=== PATIENT | female | born 1985 | race Caucasian/White ===

== ENCOUNTER 2017-08-11 14:40 | Inpatient (IN) | payer BC ==
[2017-08-11] MEDS: IV NORMAL SALINE 1000ML BAG 1,000 ML IV (15:00)
[2017-08-11] MEDS: IOHEXOL 300 MG/ML 100ML VIAL. IV (15:15)
[2017-08-11 15:29] LABS: ADD MAN DIFF? NO
[2017-08-11] MEDS ORDERED: CONTRAST GIVEN MC (15:30)
[2017-08-11 15:33] LABS: AGAP ISTAT 17 mmol/L (6-14); BASO % 0 % (0-3); BUN ISTAT 20 mg/dL (8-26); CHLORIDE ISTAT 103 mmol/L (98-110); CREATININE ISTAT 0.8 mg/dL (0.5-1.4); EOS % 0 % (0-3); GLUCOSE ISTAT 227 mg/dL (70-99); HEMATOCRIT ISTAT 16 % (36-40); HEMOGLOBIN ISTAT 5.4 g/dL (12-15); ION CA ISTAT 1.05 mmol/L (1.13-1.32); LYMPH # 1.5 x10^3/uL (1.0-4.8); LYMPH % 6 % (24-48); MEAN CORPUSCULAR HEMOGLOBIN 33 pg (25-35); MEAN CORPUSCULAR HGB CONC 33 g/dL (31-37); MEAN CORPUSCULAR VOLUME 100 fL (79-100); MONO # 1.2 x10^3/uL (0.0-1.1); MONO % 5 % (0-9); NEUT # 22.5 x10^3uL (1.8-7.7); NEUT % 89 % (31-73); PLATELET COUNT 358 x10^3/uL (140-400); POTASSIUM ISTAT 4.2 mmol/L (3.5-5.0); RED BLOOD COUNT 1.82 x10^6/uL (3.50-5.40); RED CELL DISTRIBUTION WIDTH 15.8 % (11.5-14.5); SODIUM ISTAT 138 mmol/L (135-145); TOT CO2 ISTAT 22 mmol/L (23-32); WHITE BLOOD COUNT 25.3 x10^3/uL (4.0-11.0)
[2017-08-11 15:35] LABS: HEMATOCRIT 18.1 % (36.0-47.0); HEMOGLOBIN 5.9 g/dL (12.0-15.5)
[2017-08-11] MEDS: IV RINGERS,LACTATED 1000ML 1,000 ML IV (15:41)
[2017-08-11 15:43] LABS: ANION GAP 10 (6-14); BLOOD UREA NITROGEN 18 mg/dL (7-20); CALCIUM 7.5 mg/dL (8.5-10.1); CARBON DIOXIDE 24 mmol/L (21-32); CHLORIDE 106 mmol/L (98-107); CREATININE 0.7 mg/dL (0.6-1.0); GFR 98.3; GLUCOSE 238 mg/dL (70-99); POTASSIUM 4.2 mmol/L (3.5-5.1); SODIUM 140 mmol/L (136-145)
[2017-08-11 15:44] LABS: INR 1.2 (0.8-1.1); PARTIAL THROMBOPLASTIN TIME 24 SEC (24-38); PROTHROMBIN TIME PATIENT 14.7 SEC (11.7-14.0)
[2017-08-11] MEDS ORDERED: ONDANSETRON PF 4 MG/2 ML VIAL. IV ×3 (15:45→18:00)
[2017-08-11] MEDS ORDERED: LIDOCAINE 1% PF 2 ML VIAL. ID (15:45)
[2017-08-11] MEDS ORDERED: fentaNYL PF VIAL 100 MCG/2 ML VIAL IV ×3 (15:45→17:30)
[2017-08-11] MEDS ORDERED: MORPHINE SULFATE 2 MG/ML DISP.SYRIN. IV (15:45)
[2017-08-11] MEDS ORDERED: HYDROmorphone 2 MG/ML VIAL IV ×2 (15:45→17:30)
[2017-08-11 15:49] LABS: ALBUMIN 2.5 g/dL (3.4-5.0); ALK PHOS 49 U/L (46-116); ALT (SGPT) 20 U/L (14-59); AST (SGOT) 23 U/L (15-37); DIRECT BILIRUBIN 0.1 mg/dL (0.0-0.2); TOTAL BILIRUBIN 0.7 mg/dL (0.2-1.0)
[2017-08-11 15:50] LABS: IMMEDIATE SPIN CROSSMATCH 1
[2017-08-11] MEDS ORDERED: ROCURONIUM 100 MG/10 ML VIAL. (16:03)
[2017-08-11] MEDS ORDERED: PROPOFOL 20 ML IV (16:03)
[2017-08-11] MEDS ORDERED: fentaNYL PF VIAL 100 MCG/2 ML VIAL (16:03)
[2017-08-11] MEDS ORDERED: LIDOCAINE 1% PF 5 ML VIAL. (16:03)
[2017-08-11] MEDS ORDERED: SUCCINYLCHOLINE 200 MG/10 ML VIAL. (16:07)
[2017-08-11] MEDS ORDERED: PHENYLEPHRINE in 0.9% NACL PF 1 MG/10 ML SYRINGE. IV (16:43)
[2017-08-11] MEDS ORDERED: DESFLURANE 61 TO 120 MINUTES IH (16:46)
[2017-08-11] MEDS ORDERED: DEXAMETHASONE SOD PHOS 20 MG/5 ML VIAL. (16:46)
[2017-08-11] MEDS ORDERED: ALBUMIN HUMAN 5% 500 ML IV (17:01)
[2017-08-11] MEDS ORDERED: ONDANSETRON PF 4 MG/2 ML VIAL. (17:06)
[2017-08-11 17:15] LABS: % BANDS 28 % (0-9); % METAS 1 % (0-0); % MONOS 4 % (0-10); % SEGS 67 % (35-66)
[2017-08-11 17:16] LABS: ANISOCYTOSIS SLIGHT; PLT ESTIMATE ADEQUATE (ADEQUATE); POLYCHROMASIA PRESENT
[2017-08-11] MEDS ORDERED: GLYCOPYRROLATE 1 MG/5 ML VIAL. (17:21)
[2017-08-11] MEDS ORDERED: NEOSTIGMINE 10 MG/10 ML VIAL. (17:21)
[2017-08-11] MEDS ORDERED: IPRATRPIUM/ALBUTEROL 0.5/2.5MG 3 ML NEBU. NEB (17:30)
[2017-08-11] MEDS ORDERED: NALOXONE 0.4 MG/ML VIAL. IV (17:30)
[2017-08-11] MEDS ORDERED: diphenhydrAMINE 50 MG/ML VIAL IV (17:30)
[2017-08-11] MEDS: SURGICEL HEMOSTAT 4X8 EACH. (17:30)
[2017-08-11] MEDS ORDERED: MIDAZOLAM HCL/PF 2 MG/2 ML VIAL. IV (17:30)
[2017-08-11] MEDS ORDERED: PROCHLORPERAZINE 10 MG/2 ML VIAL. IV (17:30)
[2017-08-11] MEDS ORDERED: LABETALOL 20 MG/4 ML DISP.SYRIN. IV (17:30)
[2017-08-11] MEDS ORDERED: hydrALAZINE 20 MG/ML VIAL. IVP (17:30)
[2017-08-11] MEDS ORDERED: BENZOCAINE/MENTHOL LOZENGE. PO (18:00)
[2017-08-11] MEDS ORDERED: 0.9 % SODIUM CHLORIDE 10 ML DISP.SYRIN. IV (18:00)
[2017-08-11] MEDS ORDERED: PHENOL ORAL SPRAY 177ML BOTTLE. PO (18:00)
[2017-08-11] MEDS: PROCHLORPERAZINE 10 MG/2 ML VIAL. IV ×2 (18:09→18:20)
[2017-08-11] MEDS: fentaNYL PF VIAL 100 MCG/2 ML VIAL IV ×4 (18:12→19:20)
[2017-08-11] MEDS: MORPHINE SULFATE 4 MG/ML DISP.SYRIN. IV ×2 (18:34→18:47)
[2017-08-11 19:23] LABS: HEMOGLOBIN 8.1 g/dL (12.0-15.5); MEAN CORPUSCULAR HEMOGLOBIN 31 pg (25-35); MEAN CORPUSCULAR HGB CONC 34 g/dL (31-37); MEAN CORPUSCULAR VOLUME 93 fL (79-100); PLATELET COUNT 352 x10^3/uL (140-400); RED BLOOD COUNT 2.58 x10^6/uL (3.50-5.40); RED CELL DISTRIBUTION WIDTH 16.4 % (11.5-14.5); WHITE BLOOD COUNT 21.8 x10^3/uL (4.0-11.0)
[2017-08-11] MEDS: MORPHINE SULFATE 2 MG/ML DISP.SYRIN. IV (19:23)
[2017-08-11] MEDS: POTASSIUM CL 20MEQ-0.45% NACL 1,000 ML IV (22:34)
[2017-08-11 22:55] LABS: LACTIC ACID 1.6 mmol/L (0.4-2.0)
[2017-08-12] MEDS: POTASSIUM CL 20MEQ-0.45% NACL 1,000 ML IV ×3 (03:21→22:05)
[2017-08-12 06:23] LABS: ALBUMIN 3.2 g/dL (3.4-5.0); ALBUMIN/GLOBULIN RATIO 1.3 (1.0-1.7); ALK PHOS 46 U/L (46-116); ALT (SGPT) 48 U/L (14-59); AST (SGOT) 39 U/L (15-37); BASO % 0 % (0-3); BLOOD UREA NITROGEN 15 mg/dL (7-20); BUN/CREATININE RATIO 30 (6-20); CALCIUM 7.9 mg/dL (8.5-10.1); CARBON DIOXIDE 27 mmol/L (21-32); CHLORIDE 103 mmol/L (98-107); CREATININE 0.5 mg/dL (0.6-1.0); EOS % 0 % (0-3); GFR 144.9; GLUCOSE 122 mg/dL (70-99); HEMATOCRIT 23.3 % (36.0-47.0); HEMOGLOBIN 8.1 g/dL (12.0-15.5); LYMPH % 6 % (24-48); MEAN CORPUSCULAR HEMOGLOBIN 32 pg (25-35); MEAN CORPUSCULAR HGB CONC 35 g/dL (31-37); MEAN CORPUSCULAR VOLUME 92 fL (79-100); MONO # 1.4 x10^3/uL (0.0-1.1); MONO % 9 % (0-9); NEUT # 14.3 x10^3uL (1.8-7.7); NEUT % 85 % (31-73); PLATELET COUNT 400 x10^3/uL (140-400); POTASSIUM 4.7 mmol/L (3.5-5.1); RED BLOOD COUNT 2.53 x10^6/uL (3.50-5.40); RED CELL DISTRIBUTION WIDTH 16.5 % (11.5-14.5); TOTAL PROTEIN 5.7 g/dL (6.4-8.2); WHITE BLOOD COUNT 16.8 x10^3/uL (4.0-11.0)
[2017-08-12 06:36] LABS: ANION GAP 6 (6-14); SODIUM 136 mmol/L (136-145)
[2017-08-12 06:53] LABS: ADD MAN DIFF? YES
[2017-08-12 08:23] LABS: LACTIC ACID 4.3 mmol/L (0.4-2.0)
[2017-08-12] MEDS: CALCIUM CHLORIDE IV (09:46)
[2017-08-12] MEDS: DEXTROSE 5% IV (09:46)
[2017-08-12 09:47] LABS: % BANDS 7 % (0-9); % LYMPHS 5 % (24-48); % MONOS 5 % (0-10); % SEGS 83 % (35-66); PLT ESTIMATE ADEQUATE (ADEQUATE)
[2017-08-12 09:48] LABS: ANISOCYTOSIS PRESENT
[2017-08-12 16:17] LABS: MRSA BY PCR Negative (Negative)
[2017-08-12] MEDS: VANCOMYCIN 1.5 GM in IV DEXTROSE 5 %-0.2 % NACL 500 ML IV (17:28)
[2017-08-12] MEDS: diphenhydrAMINE 50 MG/ML VIAL IV (19:25)
[2017-08-12] MEDS: VANCOMYCIN PER PHARMACY MC (19:39)
[2017-08-12 21:10] LABS: HEMOGLOBIN A1C 4.7 % (4.8-5.6)
[2017-08-13] MEDS: KETOROLAC 30 MG/ML INJ. IV (00:49)
[2017-08-13] MEDS: VANCOMYCIN 1 GM in IV DEXTROSE 5% 250 ML IV ×3 (01:00→17:05)
[2017-08-13] MEDS: KETOROLAC 15 MG/ML VIAL. IV ×4 (05:47→23:58)
[2017-08-13] MEDS ORDERED: AMPICILLIN/SULBACTAM 3 GM in IV NORMAL SALINE 100ML 100 ML IV (07:30)
[2017-08-13] MEDS: VANCOMYCIN PER PHARMACY MC ×2 (08:33→17:11)
[2017-08-13 09:08] LABS: ADD MAN DIFF? NO
[2017-08-13 09:09] LABS: BASO # 0.1 x10^3/uL (0.0-0.2); BASO % 0 % (0-3); EOS % 0 % (0-3); HEMOGLOBIN 7.1 g/dL (12.0-15.5); LYMPH # 0.6 x10^3/uL (1.0-4.8); LYMPH % 4 % (24-48); MEAN CORPUSCULAR HEMOGLOBIN 32 pg (25-35); MEAN CORPUSCULAR HGB CONC 34 g/dL (31-37); MEAN CORPUSCULAR VOLUME 93 fL (79-100); MONO % 12 % (0-9); NEUT # 14.4 x10^3uL (1.8-7.7); NEUT % 84 % (31-73); PLATELET COUNT 494 x10^3/uL (140-400); RED BLOOD COUNT 2.25 x10^6/uL (3.50-5.40); RED CELL DISTRIBUTION WIDTH 16.9 % (11.5-14.5); WHITE BLOOD COUNT 17.1 x10^3/uL (4.0-11.0)
[2017-08-13 09:10] LABS: HEMATOCRIT 21.8 % (36.0-47.0)
[2017-08-13] MEDS: AMPICILLIN/SULBACTAM IV Push 3 GM VIAL. IVP ×4 (09:10→23:57)
[2017-08-13 09:37] LABS: ALBUMIN 2.7 g/dL (3.4-5.0); ALBUMIN/GLOBULIN RATIO 0.8 (1.0-1.7); ALK PHOS 51 U/L (46-116); ALT (SGPT) 32 U/L (14-59); ANION GAP 8 (6-14); AST (SGOT) 22 U/L (15-37); BLOOD UREA NITROGEN 10 mg/dL (7-20); BUN/CREATININE RATIO 20 (6-20); CALCIUM 8.1 mg/dL (8.5-10.1); CARBON DIOXIDE 29 mmol/L (21-32); CHLORIDE 103 mmol/L (98-107); CREATININE 0.5 mg/dL (0.6-1.0); GFR 144.9; GLUCOSE 99 mg/dL (70-99); POTASSIUM 3.6 mmol/L (3.5-5.1); SODIUM 140 mmol/L (136-145); TOTAL PROTEIN 6.1 g/dL (6.4-8.2)
[2017-08-13] MEDS: POTASSIUM CL 20MEQ-0.45% NACL 1,000 ML IV (10:08)
[2017-08-13 16:14] LABS: MEAN CORPUSCULAR HEMOGLOBIN 32 pg (25-35); MEAN CORPUSCULAR HGB CONC 33 g/dL (31-37); MEAN CORPUSCULAR VOLUME 95 fL (79-100); PLATELET COUNT 473 x10^3/uL (140-400); RED BLOOD COUNT 2.14 x10^6/uL (3.50-5.40); RED CELL DISTRIBUTION WIDTH 17.2 % (11.5-14.5); WHITE BLOOD COUNT 15.1 x10^3/uL (4.0-11.0)
[2017-08-13 16:18] LABS: HEMATOCRIT 20.4 % (36.0-47.0); HEMOGLOBIN 6.8 g/dL (12.0-15.5)
[2017-08-13 16:32] LABS: VANC TR 18.9 mcg/mL (10.0-20.0)
[2017-08-13] MEDS: AMINO AC 3%/ELECTROLYTE/GLYCER 1,000 ML IV (17:04)
[2017-08-13 20:00] LABS: IMMEDIATE SPIN CROSSMATCH 1 3
[2017-08-13] MEDS: FUROSEMIDE 20 MG/2 ML VIAL. IVP (23:09)
[2017-08-13] MEDS: ENOXAPARIN 30 MG/0.3 ML SYRINGE. SQ (23:10)
[2017-08-14 00:27] LABS: HEMATOCRIT 24.9 % (36.0-47.0); HEMOGLOBIN 8.4 g/dL (12.0-15.5); MEAN CORPUSCULAR HEMOGLOBIN 32 pg (25-35); MEAN CORPUSCULAR HGB CONC 34 g/dL (31-37); MEAN CORPUSCULAR VOLUME 94 fL (79-100); PLATELET COUNT 504 x10^3/uL (140-400); RED BLOOD COUNT 2.65 x10^6/uL (3.50-5.40); RED CELL DISTRIBUTION WIDTH 16.1 % (11.5-14.5); WHITE BLOOD COUNT 13.4 x10^3/uL (4.0-11.0)
[2017-08-14] MEDS: VANCOMYCIN 1 GM in IV DEXTROSE 5% 250 ML IV ×3 (01:14→17:30)
[2017-08-14] MEDS: AMINO AC 3%/ELECTROLYTE/GLYCER 1,000 ML IV ×2 (05:57→18:30)
[2017-08-14] MEDS: AMPICILLIN/SULBACTAM IV Push 3 GM VIAL. IVP ×4 (05:58→23:59)
[2017-08-14 06:00] LABS: ADD MAN DIFF? NO; BASO % 0 % (0-3); EOS # 0.1 x10^3/uL (0.0-0.7); EOS % 1 % (0-3); HEMATOCRIT 23.8 % (36.0-47.0); LYMPH # 1.5 x10^3/uL (1.0-4.8); LYMPH % 13 % (24-48); MEAN CORPUSCULAR HEMOGLOBIN 31 pg (25-35); MEAN CORPUSCULAR HGB CONC 33 g/dL (31-37); MEAN CORPUSCULAR VOLUME 93 fL (79-100); MONO # 1.5 x10^3/uL (0.0-1.1); MONO % 13 % (0-9); NEUT # 8.3 x10^3uL (1.8-7.7); NEUT % 73 % (31-73); PLATELET COUNT 490 x10^3/uL (140-400); RED BLOOD COUNT 2.55 x10^6/uL (3.50-5.40); RED CELL DISTRIBUTION WIDTH 15.9 % (11.5-14.5); WHITE BLOOD COUNT 11.5 x10^3/uL (4.0-11.0)
[2017-08-14 07:03] LABS: ANION GAP 10 (6-14); BLOOD UREA NITROGEN 11 mg/dL (7-20); CALCIUM 8.6 mg/dL (8.5-10.1); CARBON DIOXIDE 30 mmol/L (21-32); CHLORIDE 103 mmol/L (98-107); CREATININE 0.5 mg/dL (0.6-1.0); GFR 144.9; GLUCOSE 84 mg/dL (70-99); POTASSIUM 3.2 mmol/L (3.5-5.1); SODIUM 143 mmol/L (136-145)
[2017-08-14] MEDS ORDERED: ENOXAPARIN 30 MG/0.3 ML SYRINGE. SQ (09:00)
[2017-08-14] MEDS ORDERED: SIMETHICONE 80 MG TAB.CHEW PO ×2 (10:00→10:15)
[2017-08-14] MEDS: VANCOMYCIN PER PHARMACY MC (10:02)
[2017-08-14] MEDS: DOCUSATE SODIUM 100 MG CAPSULE. PO ×2 (10:45→21:11)
[2017-08-14] MEDS: POTASSIUM CL 40MEQ D5-0.45NACL 1,000 ML IV ×2 (11:38→22:50)
[2017-08-14] MEDS ORDERED: fentaNYL PF VIAL 100 MCG/2 ML VIAL IV (13:30)
[2017-08-14] MEDS: GABAPENTIN 300 MG CAPSULE. PO ×2 (13:37→21:11)
[2017-08-14] MEDS: ENOXAPARIN 30 MG/0.3 ML SYRINGE. SQ (16:00)
[2017-08-14] MEDS: oxyCODONE/APAP 5/325 1 TAB TABLET PO ×2 (18:44→22:39)
[2017-08-15] MEDS: VANCOMYCIN 1 GM in IV DEXTROSE 5% 250 ML IV ×2 (01:02→09:30)
[2017-08-15] MEDS: oxyCODONE/APAP 5/325 1 TAB TABLET PO ×5 (03:21→20:56)
[2017-08-15 05:53] LABS: ADD MAN DIFF? NO
[2017-08-15] MEDS: AMPICILLIN/SULBACTAM IV Push 3 GM VIAL. IVP ×2 (06:00→12:00)
[2017-08-15 06:23] LABS: BASO # 0.1 x10^3/uL (0.0-0.2); BASO % 1 % (0-3); EOS # 0.2 x10^3/uL (0.0-0.7); EOS % 2 % (0-3); HEMATOCRIT 23.2 % (36.0-47.0); LYMPH # 0.9 x10^3/uL (1.0-4.8); LYMPH % 10 % (24-48); MEAN CORPUSCULAR HEMOGLOBIN 33 pg (25-35); MEAN CORPUSCULAR HGB CONC 34 g/dL (31-37); MEAN CORPUSCULAR VOLUME 95 fL (79-100); MONO # 1.1 x10^3/uL (0.0-1.1); MONO % 12 % (0-9); NEUT # 6.7 x10^3uL (1.8-7.7); NEUT % 75 % (31-73); PLATELET COUNT 671 x10^3/uL (140-400); RED BLOOD COUNT 2.45 x10^6/uL (3.50-5.40); RED CELL DISTRIBUTION WIDTH 15.7 % (11.5-14.5); WHITE BLOOD COUNT 8.9 x10^3/uL (4.0-11.0)
[2017-08-15 06:24] LABS: ALBUMIN 2.7 g/dL (3.4-5.0); ALBUMIN/GLOBULIN RATIO 0.7 (1.0-1.7); ALK PHOS 60 U/L (46-116); ALT (SGPT) 22 U/L (14-59); ANION GAP 8 (6-14); AST (SGOT) 14 U/L (15-37); BLOOD UREA NITROGEN 9 mg/dL (7-20); BUN/CREATININE RATIO 18 (6-20); CALCIUM 8.5 mg/dL (8.5-10.1); CARBON DIOXIDE 27 mmol/L (21-32); CHLORIDE 104 mmol/L (98-107); CREATININE 0.5 mg/dL (0.6-1.0); GFR 144.9; GLUCOSE 92 mg/dL (70-99); MAGNESIUM 1.9 mg/dL (1.8-2.4); POTASSIUM 3.8 mmol/L (3.5-5.1); SODIUM 139 mmol/L (136-145); TOTAL PROTEIN 6.4 g/dL (6.4-8.2)
[2017-08-15] MEDS: GABAPENTIN 300 MG CAPSULE. PO ×3 (08:59→20:56)
[2017-08-15] MEDS: DOCUSATE SODIUM 100 MG CAPSULE. PO ×2 (08:59→20:56)
[2017-08-15] MEDS ORDERED: oxyCODONE IR 5 MG TABLET PO (09:45)
[2017-08-15] MEDS ORDERED: oxyCODONE/APAP 5/325 1 TAB TABLET PO (09:45)
[2017-08-15] MEDS: POTASSIUM CL 40MEQ D5-0.45NACL 1,000 ML IV (12:10)
[2017-08-15] MEDS: ENOXAPARIN 40 MG/0.4 ML SYRINGE. SQ (16:10)
[2017-08-15] MEDS: CIPROFLOXACIN HCL 250 MG TABLET. PO (20:56)
[2017-08-16] MEDS: POTASSIUM CL 40MEQ D5-0.45NACL 1,000 ML IV ×2 (01:03→14:50)
[2017-08-16] MEDS: oxyCODONE/APAP 5/325 1 TAB TABLET PO ×3 (01:04→12:00)
[2017-08-16] MEDS: CIPROFLOXACIN HCL 250 MG TABLET. PO (08:29)
[2017-08-16] MEDS: GABAPENTIN 300 MG CAPSULE. PO ×2 (08:30→13:39)
[2017-08-16] MEDS: DOCUSATE SODIUM 100 MG CAPSULE. PO (08:30)
== END 2017-08-16 15:07 | disposition home or self-care (01) | DRG 356 ==
LOC: 4 NORTH 08-14 12:43 → SURG 14:40 → ED HOLD 17:39 → 1 WEST ICU 19:46
PROC: 07TP0ZZ Resection of Spleen, Open Approach (ICD-10-PCS; principal; 2017-08-11 16:00)
PROC: 30233L1 Transfusion of Nonautologous Fresh Plasma into Peripheral Vein, Percutaneous Approach (ICD-10-PCS; 2017-08-11 16:16)
PROC: 30233N1 Transfusion of Nonautologous Red Blood Cells into Peripheral Vein, Percutaneous Approach (ICD-10-PCS; 2017-08-11 16:16)
PROC: 30233K1 Transfusion of Nonautologous Frozen Plasma into Peripheral Vein, Percutaneous Approach (ICD-10-PCS; 2017-08-11 16:16)
DX: K66.1 Hemoperitoneum (principal); G93.40 Encephalopathy, unspecified; I72.8 Aneurysm of other specified arteries; S36.039A Unspecified laceration of spleen, initial encounter; S42.302A Unspecified fracture of shaft of humerus, left arm, initial encounter for closed fracture; D62 Acute posthemorrhagic anemia; R58 Hemorrhage, not elsewhere classified; E87.6 Hypokalemia; D72.829 Elevated white blood cell count, unspecified; F41.9 Anxiety disorder, unspecified; M54.9 Dorsalgia, unspecified; N83.201 Unspecified ovarian cyst, right side; N83.202 Unspecified ovarian cyst, left side; Z79.899 Other long term (current) drug therapy; Z88.0 Allergy status to penicillin; Z88.8 Allergy status to other drugs, medicaments and biological substances
CPT/HCPCS: 36415; 71045; 71275; 74018; 74174; 80047; 80048; 80053; 80076; 80202; 83036; 83605; 83735; 84145; 85007; 85025; 85027; 85610; 85730; 86850; 86900; 86901; 86920; 86927; 87641; 88305; 93005; 97110-GP; 97116-GP; 97162-GP; 97166-GO; 97530-GP; J0295; J0330; J0780; J1100; J1170; J1200; J1650; J1885; J1956; J2270; J2370; J2405; J2704; J2710; J3010; J3370; J3490; J7030; J7042; J7120; P9016; P9017; P9045; Q9967